=== PATIENT | male | born 1945 | race Caucasian/White ===

== ENCOUNTER → 2017-02-12 | Outpatient (CLI) | payer OTHER ==
[2016-10-01 09:35] VITALS: BP 159/86
--- NOTE | 2017-02-12 10:44 | RAD ---
Right shoulder, three views Indication: Shoulder pain after injury Findings: No cortical disruption or malalignment of the right shoulder identified. There are mild de generative changes of the acromioclavicular and glenohumeral joints. The visualized right velia thora x is unremarkable. Impression: No acute right shoulder fracture or subluxation identified. Mild degenerative disease. Reported By:
== END ==
LOC: RAD 10:07
PROVIDERS: ATTEND Specialist
DX: M25.511 Pain in right shoulder (principal)
CPT/HCPCS: 73030

== ENCOUNTER 2017-02-23 11:07 | Emergency (ER) | payer OTHER ==
[2017-02-23 11:12] VITALS: BP 122/93; BMI 32.8
--- NOTE | 2017-02-23 12:01 | DR.HYPOGLY ---
HPI - Time Seen Time seen: 11:50 - PCP Primary Care Physician: NICHOLAS - Complaint Chief Complaint Doctors Comments: I agree with statement. Patient admits to nausea and dizziness for three days. Denies fever, vomiting. Chief Complaint:: PT. C/O NAUSEA AND FEELING GROGGY. PT. STATES HIS BLOOD SUGAR HAS BEEN RUNNING HIGH. HIS NORMAL OTBS RUNS ABOUT 130MG/DL. TODAY, IT HAS BEEN IN THE 300'S. PT. SEEN DR. DAI THIS PAST WEDNESDAY AND WAS GIVEN A CORTISONE SHOT IN HIS RIGHT SHOULDER. - Source History Provided: Patient - Mode of Arrival Mode of Arrival: Ambulatory - Timing Onset of Chief Complaint: 02/23/17 PMH - PMH Past Medical History: Yes Past Medical History: Anxiety, Depression, Diabetes, Dyslipidemia, Hypertension Past Surgical History: Yes Surgical History: Ortho Surgery, Other - Family History History of Family Medical Conditions: Yes Family Medical History: Diabetes Mellitus, Coronary Artery Disease, Hypertension - Social History Does patient currently use any type of tobacco product: No Have you used tobacco products in the last 12 months: No Type of Tobacco Use: None Does any household member use tobacco: No Alcohol Use: None Do you use any recreational Drugs:: No Lives With: Spouse Lives Where: Home - infectious screening In the last 2 months have you had wt loss of >10#?: NO Have you had fever, night sweats or hemotysis?: No Have you traveled outside the country in the last 6 months?: No Isolation: Standard ROS - Review of Systems Eyes: No Symptoms Reported ENTM: No Symptoms Reported Respiratoy: No Symptoms Reported Cardiovascular: No Symptoms Reported Gastrointestinal/Abdominal: No Symptoms Reported Genitourinary: No Symptoms Reported Neurological: Dizziness Musculoskeletal: No Symptoms Reported Integumentary: No Symptoms Reported Hematologic/Lymphatic: No Symptoms Reported Endocrine: No Symptoms Reported Psychiatric: No Symptoms Reported All Other Systems: Reviewed and Negative PE - Vital Signs Vitals: Temperature 98.4 F Pulse Rate 93 Respiratory Rate 17 Blood Pressure [Left Arm] 122/71 Blood Pressure [Right Arm] 132/77 Blood Pressure 122/93 O2 Sat by Pulse Oximetry 96 - General Limitations: No Limitations General Appearance: Alert, In No Apparent Distress - Eyes Eye exam: Normal Appearance, PERRL, EOMI Pupils: Regular, Round: Bilateral Sclera/Conjunctival: Normal Inspection: Bilateral - ENT ENT Exam: Normal Exam Nose Exam: Normal Nose Exam Mouth Exam: Normal Inspection Throat Exam: Normal Inspection - Neck Neck Exam: Normal Inspection - Chest Chest Inspection: Normal Inspection - Respiratory Respiratory Exam: Normal Lung Sounds Bilat Respiratory Exam: Bilateral Clear to Auscultation - Cardiovascular Cardiovascular Exam: Regular Rate - Abdominal Exam Abdominal Exam: Normal Inspection Abdominal Tenderness: negative: RUQ, RLQ, LUQ, LLQ, Epigastrium, Suprapubic, Diffuse, Mild, Moderate, Severe, Other - Extremities Extremities Exam: negative: Normal Inspection, Full ROM, Tenderness, Normal Capillary Refill, Edema, Joint Swelling, Calf Tenderness, Other - Back Back Exam: Normal Inspection, Full ROM - Neurologic Neurological Exam: Alert, Oriented X3, CN II-XII Intact Cranial Nerve Exam: EOM Function (II, III, IV, ): Normal Course - Treatment Treatment: NS one liter, glucse decreased to 245mg/dl-- - Reevaluation 1st: Improved ROR - Labs Reviewed Result Diagrams: 02/23/17 12:20 02/23/17 12:20 Laboratory: WBC 11.9 X10^3/uL (3.6-10.0) H 02/23/17 12:20 RBC 5.53 X10^6/uL (4.7-6.0) 02/23/17 12:20 Hgb 14.2 g/dL (13.5-18.0) 02/23/17 12:20 Hct 42.2 % (42.0-54.0) 02/23/17 12:20 MCV 76.4 fL (80.0-100.0) L 02/23/17 12:20 MCH 25.8 pg (27.0-34.0) L 02/23/17 12:20 MCHC 33.7 g/dL (33.0-35.0) 02/23/17 12:20 RDW 14.6 % (11.6-16.5) 02/23/17 12:20 Plt Count 317 X10^3/uL (150.0-450.0) 02/23/17 12:20 Plt Count Comment Adequate (ADEQUATE) 02/23/17 12:20 MPV 7.4 fL (7.4-11.0) 02/23/17 12:20 Neut % 58.7 % (42.0-75.0) 02/23/17 12:20 Lymph % 31.7 % (21.0-51.0) 02/23/17 12:20 [place] % 6.6 % (0.0-13.0) 02/23/17 12:20 Eos % 1.6 % (0.9-2.9) 02/23/17 12:20 Baso % 1.4 % (0.2-1.0) H 02/23/17 12:20 Neut # 7.0 x10^3/uL (2.2-4.8) H 02/23/17 12:20 Lymph # 3.8 X10^3/uL (1.3-2.9) H 02/23/17 12:20 [place] # 0.8 x10^3/uL (0.3-0.8) 02/23/17 12:20 Eos # 0.2 x10^3/uL (0.0-0.2) 02/23/17 12:20 Baso # 0.2 X10^3/uL (0.0-0.1) H 02/23/17 12:20 Absolute Nucleated RBC 0.0 /100WBC 02/23/17 12:20 Plt Morphology Comment Normal (NORMAL) 02/23/17 12:20 RBC Morphology Abnormal (NORMAL) 02/23/17 12:20 Hypochromasia Slight A 02/23/17 12:20 Sodium 136 mmol/L (136-145) 02/23/17 12:20 Corrected Sodium 141 mmol/L (136-145) 02/23/17 12:20 Potassium 4.4 mmol/L (3.5-5.1) 02/23/17 12:20 Chloride 100 mmol/L (98-107) 02/23/17 12:20 Carbon Dioxide 26.2 mmol/L (21-32) 02/23/17 12:20 BUN 25 mg/dL (7-18) H 02/23/17 12:20 Creatinine 2.05 mg/dL (0.70-1.30) H 02/23/17 12:20 Est GFR (MDRD) Af Amer 41 (>60) L 02/23/17 12:20 Est GFR (MDRD) Non-Af 34 (>60) L 02/23/17 12:20 Glucose 314 mg/dL (65-99) H 02/23/17 12:20 Calcium 9.2 mg/dL (8.5-10.1) 02/23/17 12:20 Corrected Calcium TNP 02/23/17 12:20 Total Bilirubin 0.40 mg/dL (0.2-1.0) 02/23/17 12:20 AST 21 Units/L (15-37) 02/23/17 12:20 ALT 39 Units/L (12-78) 02/23/17 12:20 Alkaline Phosphatase 67 Units/L (46-116) 02/23/17 12:20 C-Reactive Protein < 0.50 mg/L (0-3.0) 02/23/17 12:20 Total Protein 7.6 g/dL (6.4-8.2) 02/23/17 12:20 Albumin 4.0 g/dL (3.4-5.0) 02/23/17 12:20 Globulin 3.6 g/dL (2.5-4.5) 02/23/17 12:20 Albumin/Globulin Ratio 1.1 Ratio (1.1-2.1) 02/23/17 12:20 Specimen Type Clean catch urine 02/23/17 12:19 Urine Color Yellow (YELLOW) 02/23/17 12:19 Urine Appearance Clear (CLEAR) 02/23/17 12:19 Urine pH 6.0 (5.0 - 8.0) 02/23/17 12:19 Ur Specific [place] 1.015 (1.000-1.030) 02/23/17 12:19 Urine Protein 2+ (NEGATIVE) 02/23/17 12:19 Urine Glucose (UA) 4+ (NEGATIVE) 02/23/17 12:19 Urine Ketones Negative (NEGATIVE) 02/23/17 12:19 Urine Occult Blood 1+ (NEGATIVE) 02/23/17 12:19 Urine Nitrite Negative (NEGATIVE) 02/23/17 12:19 Urine Bilirubin Negative (NEGATIVE) 02/23/17 12:19 Urine Urobilinogen Normal (NORMAL) 02/23/17 12:19 Ur Leukocyte Esterase Negative (NEGATIVE) 02/23/17 12:19 Urine RBC 0-3 /HPF (NEGATIVE) 02/23/17 12:19 Urine WBC None seen /HPF (NEGATIVE) 02/23/17 12:19 Ur Squamous Epith Cells Rare /HPF (NEGATIVE) 02/23/17 12:19 Urine Bacteria Negative /HPF (NEGATIVE) 02/23/17 12:19 Ur Culture Indicated? No/not indicated 02/23/17 12:19 - Diagnosis Discharge Problem: Dehydration, mild, Hyperglycemia - Discharge Plan Condition: Stable - Follow ups/Referrals Follow ups/Referrals: ANABELLA PETERSON [Primary Care Provider] - 3 days - Instructions
[2017-02-23] MEDS ORDERED: ZOFRAN INJ 4 MG VIAL IVP ONE (12:02)
[2017-02-23] MEDS ORDERED: NS 1000 ML 1,000 ML IV ONE (12:02)
[2017-02-23] MEDS ORDERED: NS 1000 ML 1,000 ML ONE (12:06)
[2017-02-23] MEDS ORDERED: ZOFRAN INJ 4 MG VIAL ONE (12:21)
[2017-02-23 12:26] LABS: BASOPHILS # (AUTO) 0.2 X10^3/uL (0.0-0.1); BASOPHILS % (AUTO) 1.4 % (0.2-1.0); EOSINOPHILS # (AUTO) 0.2 x10^3/uL (0.0-0.2); EOSINOPHILS % (AUTO) 1.6 % (0.9-2.9); HEMATOCRIT 42.2 % (42.0-54.0); HEMOGLOBIN 14.2 g/dL (13.5-18.0); LYMPHOCYTES # (AUTO) 3.8 X10^3/uL (1.3-2.9); LYMPHOCYTES % (AUTO) 31.7 % (21.0-51.0); MEAN CORPUSCULAR HEMOGLOBIN 25.8 pg (27.0-34.0); MEAN CORPUSCULAR HGB CONC 33.7 g/dL (33.0-35.0); MEAN CORPUSCULAR VOLUME 76.4 fL (80.0-100.0); MEAN PLATELET VOLUME 7.4 fL (7.4-11.0); MONOCYTES # (AUTO) 0.8 x10^3/uL (0.3-0.8); MONOCYTES % (AUTO) 6.6 % (0.0-13.0); NEUTROPHILS % (AUTO) 58.7 % (42.0-75.0); PLATELET COUNT 317 X10^3/uL (150.0-450.0); RED BLOOD COUNT 5.53 X10^6/uL (4.7-6.0); RED CELL DISTRIBUTION WIDTH 14.6 % (11.6-16.5); WHITE BLOOD COUNT 11.9 X10^3/uL (3.6-10.0)
[2017-02-23 12:27] LABS: BILIRUBIN,URINE NEGATIVE (NEGATIVE); BLOOD/HEMOGLOBIN,URINE 1+ (NEGATIVE); GLUCOSE, URINE 4+ (NEGATIVE); KETONES,URINE NEGATIVE (NEGATIVE); LEUKOCYTE ESTERASE ,URINE NEGATIVE (NEGATIVE); NITRITES,URINE NEGATIVE (NEGATIVE); PROTEIN,URINE 2+ (NEGATIVE); UROBILINOGEN,URINE NORMAL (NORMAL)
[2017-02-23 12:36] LABS: APPEARANCE,URINE CLEAR (CLEAR); BACTERIA,URINE NEGATIVE /HPF (NEGATIVE); COLOR,URINE YELLOW (YELLOW); RBC,URINE 0-3 /HPF (NEGATIVE); SQUAMOUS EPITHELIAL CELL,UR RARE /HPF (NEGATIVE)
[2017-02-23 12:39] LABS: ALANINE AMINOTRANSFERASE 39 Units/L (12-78); ALKALINE PHOSPHATASE 67 Units/L (46-116); ASPARTATE AMINO TRANSFERASE 21 Units/L (15-37); BLOOD UREA NITROGEN 25 mg/dL (7-18); C-REACTIVE PROTEIN < 0.50 mg/L (0-3.0); CALCIUM 9.2 mg/dL (8.5-10.1); CARBON DIOXIDE 26.2 mmol/L (21-32); CHLORIDE 100 mmol/L (98-107); COR NA(FOR HYPERGLY) 141 mmol/L (136-145); CREATININE 2.05 mg/dL (0.70-1.30); GLUCOSE 314 mg/dL (65-99); SODIUM 136 mmol/L (136-145); TOTAL PROTEIN 7.6 g/dL (6.4-8.2); eGFR BLACK RACES 41 (>60); eGFR NON BLACK RACES 34 (>60)
[2017-02-23 12:43] LABS: HYPOCHROMASIA SLIGHT; PLATELET MORPHOLOGY COMMENT NORMAL (NORMAL)
[2017-02-23 12:56] LABS: HEMOGLOBIN A1C 11.1 % (4.5-6.2)
== END 2017-02-23 13:41 | disposition home or self-care (01) ==
LOC: ER 11:35
DX: E86.0 Dehydration (principal); R73.9 Hyperglycemia, unspecified
CPT/HCPCS: 36415; 80053; 81001; 83036; 85025; 86140; 96365; 96374; 99283; A4222; J2405

== ENCOUNTER → 2017-04-29 | Outpatient (CLI) | payer OTHER ==
--- NOTE | 2017-04-29 17:03 | RAD ---
History: Right shoulder pain Study: Right shoulder three views Findings: Three views of the right shoulder compared to a study of February 12, 2017. There is narrowing and moderate spurring affecting the AC joint with spurring from the inferior aspect of the a chromium demonstrated as before. There is normal alignment at the glenohumeral joint. No fracture or bony erica tructive process is seen. 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 Reported By:
--- NOTE | 2017-04-29 17:05 | RAD ---
History: Right shoulder pain and neck pain Study: Cervical spine complete Findings: Multiple views of the cervical spine demonstrate straightening of the normal cervical lordo sis. There is severe disk space narrowing at the C5-6 level. There is moderate to marked endplate spu rring at essentially all levels. There are degenerative changes of the apophyseal joints with signifi cant bony foraminal narrowing on the left at the C3-4 level and to a limited degree at the C5-6 level s bilaterally. No fracture bony destructive process is seen. Impression: Advanced spondylosis of the cervical spine with mild to moderate osteoarthrosis with fora mando narrowing as described. Reported By:
== END | disposition home or self-care (01) | DRG 556 ==
LOC: RAD 09:12
PROVIDERS: ATTEND Specialist
DX: M25.511 Pain in right shoulder (principal); M47.892 Other spondylosis, cervical region; M19.011 Primary osteoarthritis, right shoulder
CPT/HCPCS: 72050; 73030

== ENCOUNTER → 2017-05-14 | Outpatient (CLI) | payer OTHER ==
--- NOTE | 2017-05-17 17:19 | MRI ---
MRI right shoulder without contrast Indication: Right shoulder pain after fall Comparison: Radiographs 04/29/2017 Technique: Multiplanar, multi sequence MR images of the right shoulder were obtained without contrast . Findings: There is moderate AC joint DJD with mild effacement of the underlying supraspinatus at the musculoten dinous junction related to degenerative hypertrophy and an inferiorly projecting osteophyte at the di stal clavicle. Type 2 acromion. There is trace fluid within the subacromial/subdeltoid bursa. There is intermediate signal of the distal supraspinatus and infraspinatus tendons, consistent with t endinosis, with bursal sided fraying of the supraspinatus. There is also partial undersurface tear of the superior subscapularis tendon. No definite full-thickness cuff tear or tendon retraction identif ied. There is intermediate signal and thickening of the intra-articular biceps tendon, which is other molina grossly intact. The long head biceps tendon is normally positioned within the bicipital groove, although there is increased peritendinous fluid noted. There is degenerative fraying of the superior labrum. The remainder of the labrum is otherwise grossly intact. Mild diffuse glenohumeral chondrosis noted, without full-thickness chondral defect. No joint effusion. Impression: 1. Supraspinatus and infraspinatus tendinosis with bursal sided fraying of the supraspinatus tendon. Partial undersurface tear of the superior subscapularis. No evidence for full-thickness cuff tear or tendon retraction. 2. Moderate tendinosis versus partial intrasubstance tear of the intra-articular biceps tendon. Findi ngs of biceps tenosynovitis. 3. Moderate AC joint DJD. Subacromial/subdeltoid bursitis. 4. No acute fracture or dislocation. Reported By:
== END | disposition home or self-care (01) ==
LOC: RAD 12:55
PROVIDERS: ATTEND Specialist
DX: M19.011 Primary osteoarthritis, right shoulder (principal); S46.819A Strain of other muscles, fascia and tendons at shoulder and upper arm level, unspecified arm, initial encounter; X58.XXXA Exposure to other specified factors, initial encounter; M75.51 Bursitis of right shoulder; M77.8 Other enthesopathies, not elsewhere classified
CPT/HCPCS: 73221

== ENCOUNTER 2017-05-28 07:24 | Emergency (ER) | payer OTHER ==
[2017-05-28 07:35] VITALS: BP 135/90; BMI 32.8
--- NOTE | 2017-05-28 07:47 | DR.N/VMALE ---
HPI - Primary Care Physician Primary Care Physician: LANCE KULKARNI - Complaints Chief Complaint:: PT C/O BEING NAUSEATED EVERYDAY FOR THE PAST 3 WEEK AND DIZZY AND THAT HE NEEDS SOME HELP.. PT C/O HX DM, SHINGLES, PANCREATITIS,, Self Treatment fo Chief Complaint: ZOFRAN ODT - Source History Provided: Patient - Mode of Arrival Mode of Arrival: Ambulatory - Timing Onset of Chief Complaint: 05/06/17 <PRATIMA SIU - Last Filed: 05/28/17 07:47> - Time Seen Time seen: 07:50 <GABBY HOWELL - Last Filed: 05/28/17 10:08> PMH - PMH Past Medical History: Yes Past Medical History: Diabetes Past Medical History Comment: PANCREATITIS, Past Surgical History: Yes Surgical History: Ortho Surgery, Other Past Surgical History Comment: HERNIA REPAIR, - Family History History of Family Medical Conditions: Yes Family Medical History: Diabetes Mellitus, Coronary Artery Disease, Hypertension - Social History Does patient currently use any type of tobacco product: No Have you used tobacco products in the last 12 months: No Type of Tobacco Use: None Does any household member use tobacco: No Alcohol Use: None Do you use any recreational Drugs:: No Lives With: Family Lives Where: Home - infectious screening In the last 2 months have you had wt loss of >10#?: NO Have you had fever, night sweats or hemotysis?: No Have you traveled outside the country in the last 6 months?: No Isolation: Standard <PRATIMA SIU - Last Filed: 05/28/17 07:47> - Vital Signs Vitals: Temperature 98.2 F Pulse Rate 91 Respiratory Rate 20 Blood Pressure [Left Arm] 122/71 Blood Pressure [Right Arm] 132/77 Blood Pressure 135/90 O2 Sat by Pulse Oximetry 96 ROR - Labs Reviewed Result Diagrams: 05/28/17 08:15 05/28/17 08:15 <GABBY HOWELL - Last Filed: 05/28/17 10:08> - Labs Reviewed Laboratory: WBC 7.9 X10^3/uL (3.6-10.0) 05/28/17 08:15 RBC 4.94 X10^6/uL (4.7-6.0) 05/28/17 08:15 Hgb 12.3 g/dL (13.5-18.0) L 05/28/17 08:15 Hct 37.6 % (42.0-54.0) L 05/28/17 08:15 MCV 76.1 fL (80.0-100.0) L 05/28/17 08:15 MCH 24.8 pg (27.0-34.0) L 05/28/17 08:15 MCHC 32.6 g/dL (33.0-35.0) L 05/28/17 08:15 RDW 15.5 % (11.6-16.5) 05/28/17 08:15 Plt Count 283 X10^3/uL (150.0-450.0) 05/28/17 08:15 Plt Count Comment Adequate (ADEQUATE) 05/28/17 08:15 MPV 7.6 fL (7.4-11.0) 05/28/17 08:15 Neut % 62.3 % (42.0-75.0) 05/28/17 08:15 Lymph % 24.8 % (21.0-51.0) 05/28/17 08:15 [place] % 8.5 % (0.0-13.0) 05/28/17 08:15 Eos % 3.3 % (0.9-2.9) H 05/28/17 08:15 Baso % 1.1 % (0.2-1.0) H 05/28/17 08:15 Neut # 4.9 x10^3/uL (2.2-4.8) H 05/28/17 08:15 Lymph # 2.0 X10^3/uL (1.3-2.9) 05/28/17 08:15 [place] # 0.7 x10^3/uL (0.3-0.8) 05/28/17 08:15 Eos # 0.3 x10^3/uL (0.0-0.2) H 05/28/17 08:15 Baso # 0.1 X10^3/uL (0.0-0.1) 05/28/17 08:15 Absolute Nucleated RBC 0.1 /100WBC 05/28/17 08:15 Plt Morphology Comment Normal (NORMAL) 05/28/17 08:15 RBC Morphology Normal (NORMAL) 05/28/17 08:15 Sodium 134 mmol/L (136-145) L 05/28/17 08:15 Corrected Sodium 139 mmol/L (136-145) 05/28/17 08:15 Potassium 4.3 mmol/L (3.5-5.1) 05/28/17 08:15 Chloride 101 mmol/L (98-107) 05/28/17 08:15 Carbon Dioxide 24.7 mmol/L (21-32) 05/28/17 08:15 BUN 17 mg/dL (7-18) 05/28/17 08:15 Creatinine 2.44 mg/dL (0.70-1.30) H 05/28/17 08:15 Est GFR (MDRD) Af Amer 34 (>60) L 05/28/17 08:15 Est GFR (MDRD) Non-Af 28 (>60) L 05/28/17 08:15 Glucose 317 mg/dL (65-99) H 05/28/17 08:15 Calcium 9.0 mg/dL (8.5-10.1) 05/28/17 08:15 Corrected Calcium TNP 05/28/17 08:15 Total Bilirubin 0.40 mg/dL (0.2-1.0) 05/28/17 08:15 AST 29 Units/L (15-37) 05/28/17 08:15 ALT 26 Units/L (12-78) 05/28/17 08:15 Alkaline Phosphatase 75 Units/L (46-116) 05/28/17 08:15 Total Protein 7.2 g/dL (6.4-8.2) 05/28/17 08:15 Albumin 3.7 g/dL (3.4-5.0) 05/28/17 08:15 Globulin 3.5 g/dL (2.5-4.5) 05/28/17 08:15 Albumin/Globulin Ratio 1.1 Ratio (1.1-2.1) 05/28/17 08:15 Amylase 42 Units/L (25-115) 05/28/17 08:15 Lipase 219 Units/L (73-393) 05/28/17 08:15 Specimen Type Clean catch urine 05/28/17 09:24 Urine Color Yellow (YELLOW) 05/28/17 09:24 Urine Appearance Slightly hazy (CLEAR) 05/28/17 09:24 Urine pH 6.0 (5.0 - 8.0) 05/28/17 09:24 Ur Specific [place] 1.015 (1.000-1.030) 05/28/17 09:24 Urine Protein 1+ (NEGATIVE) 05/28/17 09:24 Urine Glucose (UA) 4+ (NEGATIVE) 05/28/17 09:24 Urine Ketones Negative (NEGATIVE) 05/28/17 09:24 Urine Occult Blood Negative (NEGATIVE) 05/28/17 09:24 Urine Nitrite Negative (NEGATIVE) 05/28/17 09:24 Urine Bilirubin Negative (NEGATIVE) 05/28/17 09:24 Urine Urobilinogen Normal (NORMAL) 05/28/17 09:24 Ur Leukocyte Esterase Negative (NEGATIVE) 05/28/17 09:24 Urine RBC None seen /HPF (NEGATIVE) 05/28/17 09:24 Urine WBC 0-1 /HPF (NEGATIVE) 05/28/17 09:24 Ur Squamous Epith Cells Rare /HPF (NEGATIVE) 05/28/17 09:24 Urine Bacteria Negative /HPF (NEGATIVE) 05/28/17 09:24 Urine Mucus Rare /HPF (NEGATIVE) 05/28/17 09:24 Ur Culture Indicated? No/not indicated 05/28/17 09:24 <PRATIMA SIU - Last Filed: 05/28/17 07:47> <GABBY HOWELL - Last Filed: 05/28/17 10:08> - Diagnosis Discharge Problem: Nausea, Constipation - Discharge Plan Disposition: 01 HOME, SELF-CARE Condition: Stable - Follow ups/Referrals Follow ups/Referrals: FELICIANO KULKARNI [Primary Care Provider] - 3 days - Instructions Instructions: Nausea, Adult
[2017-05-28] MEDS ORDERED: NS 1000 ML 1,000 ML IV SCH (08:00)
[2017-05-28] MEDS ORDERED: ZOFRAN INJ 4 MG VIAL IVP ONE ×2 (08:09→08:14)
[2017-05-28] MEDS ORDERED: ZOFRAN INJ 4 MG VIAL ONE (08:12)
[2017-05-28] MEDS ORDERED: NS 1000 ML 1,000 ML ONE (08:12)
[2017-05-28 08:19] LABS: BASOPHILS # (AUTO) 0.1 X10^3/uL (0.0-0.1); BASOPHILS % (AUTO) 1.1 % (0.2-1.0); EOSINOPHILS # (AUTO) 0.3 x10^3/uL (0.0-0.2); EOSINOPHILS % (AUTO) 3.3 % (0.9-2.9); HEMATOCRIT 37.6 % (42.0-54.0); HEMOGLOBIN 12.3 g/dL (13.5-18.0); LYMPHOCYTES % (AUTO) 24.8 % (21.0-51.0); MEAN CORPUSCULAR HEMOGLOBIN 24.8 pg (27.0-34.0); MEAN CORPUSCULAR HGB CONC 32.6 g/dL (33.0-35.0); MEAN CORPUSCULAR VOLUME 76.1 fL (80.0-100.0); MEAN PLATELET VOLUME 7.6 fL (7.4-11.0); MONOCYTES # (AUTO) 0.7 x10^3/uL (0.3-0.8); MONOCYTES % (AUTO) 8.5 % (0.0-13.0); NEUTROPHILS # (AUTO) 4.9 x10^3/uL (2.2-4.8); NEUTROPHILS % (AUTO) 62.3 % (42.0-75.0); PLATELET COUNT 283 X10^3/uL (150.0-450.0); RED BLOOD COUNT 4.94 X10^6/uL (4.7-6.0); RED CELL DISTRIBUTION WIDTH 15.5 % (11.6-16.5); WHITE BLOOD COUNT 7.9 X10^3/uL (3.6-10.0)
[2017-05-28 08:29] LABS: PLATELET MORPHOLOGY COMMENT NORMAL (NORMAL)
[2017-05-28 08:30] LABS: ALANINE AMINOTRANSFERASE 26 Units/L (12-78); ALBUMIN 3.7 g/dL (3.4-5.0); ALKALINE PHOSPHATASE 75 Units/L (46-116); AMYLASE 42 Units/L (25-115); ASPARTATE AMINO TRANSFERASE 29 Units/L (15-37); BLOOD UREA NITROGEN 17 mg/dL (7-18); CARBON DIOXIDE 24.7 mmol/L (21-32); CHLORIDE 101 mmol/L (98-107); COR NA(FOR HYPERGLY) 139 mmol/L (136-145); CREATININE 2.44 mg/dL (0.70-1.30); LIPASE 219 Units/L (73-393); SODIUM 134 mmol/L (136-145); TOTAL PROTEIN 7.2 g/dL (6.4-8.2); eGFR BLACK RACES 34 (>60); eGFR NON BLACK RACES 28 (>60)
--- NOTE | 2017-05-28 08:34 | DR.N/VMALE ---
HPI - Time Seen Time seen: 07:45 - Primary Care Physician Primary Care Physician: LANCE KULKARNI - HPI Comment HPI Comment: Nausea - Complaints Chief Complaint:: PT C/O BEING NAUSEATED EVERYDAY FOR THE PAST 3 WEEK AND DIZZY AND THAT HE NEEDS SOME HELP.. PT C/O HX DM, SHINGLES, PANCREATITIS,, Self Treatment fo Chief Complaint: ZOFRAN ODT - Reviewed Nurses Notes Reviewed: Yes - Source History Provided: Patient - Mode of Arrival Mode of Arrival: Ambulatory - Timing Onset of Chief Complaint: 05/06/17 - Context Recent: None Possible Ingestion: denies: Unknown, ETOH, Ethylene Glycol, Isopropanol, Methanol History of: Diabetes - Associated Signs and Symptoms Abdominal Pain Quality: denies: Aching, Burning, Cramping, Sharp, Stabbing, Other PMH - PMH Past Medical History: Yes Past Medical History: Diabetes, Hypertension Past Medical History Comment: PANCREATITIS, Past Surgical History: Yes Surgical History: Ortho Surgery, Other Past Surgical History Comment: Umbilical HERNIA REPAIR - Family History History of Family Medical Conditions: Yes Family Medical History: Diabetes Mellitus, Coronary Artery Disease, Hypertension - Social History Does patient currently use any type of tobacco product: No Have you used tobacco products in the last 12 months: No Type of Tobacco Use: None Does any household member use tobacco: No Alcohol Use: None Do you use any recreational Drugs:: No Lives With: Family Lives Where: Home - infectious screening In the last 2 months have you had wt loss of >10#?: NO Have you had fever, night sweats or hemotysis?: No Have you traveled outside the country in the last 6 months?: No Isolation: Standard ROS - Review of Systems Gastrointestinal/Abdominal: Nausea Genitourinary: No Symptoms Reported Neurological: No Symptoms Reported Musculoskeletal: No Symptoms Reported Integumentary: No Symptoms Reported Hematologic/Lymphatic: No Symptoms Reported Endocrine: No Symptoms Reported Psychiatric: No Symptoms Reported All Other Systems: Reviewed and Negative PE - Vital Signs Vitals: Temperature 98.2 F Pulse Rate 91 Respiratory Rate 20 Blood Pressure [Left Arm] 122/71 Blood Pressure [Right Arm] 132/77 Blood Pressure 135/90 O2 Sat by Pulse Oximetry 96 - General Limitations: No Limitations General Appearance: Alert, In No Apparent Distress - Head Head Exam: Normal Inspection - Eyes Eye exam: Normal Appearance, PERRL, EOMI - ENT ENT Exam: Normal Exam, Normal Oropharynx, Normal External Ear Exam, Mucous Membranes Moist - Neck Neck Exam: Normal Inspection, Full ROM, Trachea Midline - Chest Chest Inspection: Normal Inspection, Symmetric Chest Wall Rise - Respiratory Respiratory Exam: Normal Lung Sounds Bilat Respiratory Exam: Bilateral Clear to Auscultation - Cardiovascular Cardiovascular Exam: Regular Rate, Normal Rhythm - Abdominal Exam Abdominal Exam: Normal Inspection, Normal Bowel Sounds, Soft - Rectal Rectal Exam: Deferred - Exam: Male: Deferred - Extremities Extremities Exam: Normal Inspection, Full ROM - Back Back Exam: Normal Inspection, Full ROM - Neurologic Neurological Exam: Alert, Oriented X3, CN II-XII Intact - Psychiatric Psychiatric Exam: Normal Affect, Normal Mood MDM - Differential Diagnosis Differential Diagnosis: Considerations may Include:: Diabetes/DKA, Pancreatitis Course - Reevaluation 1st: Improved 2nd: Resolved 3rd: Resolved - Education/Counseling Education/Counseling: Patient, Education, Counseling Educated On: Treatment, Diagnosis ROR - Labs Reviewed Result Diagrams: 05/28/17 08:15 05/28/17 08:15 Laboratory: WBC 7.9 X10^3/uL (3.6-10.0) 05/28/17 08:15 RBC 4.94 X10^6/uL (4.7-6.0) 05/28/17 08:15 Hgb 12.3 g/dL (13.5-18.0) L 05/28/17 08:15 Hct 37.6 % (42.0-54.0) L 05/28/17 08:15 MCV 76.1 fL (80.0-100.0) L 05/28/17 08:15 MCH 24.8 pg (27.0-34.0) L 05/28/17 08:15 MCHC 32.6 g/dL (33.0-35.0) L 05/28/17 08:15 RDW 15.5 % (11.6-16.5) 05/28/17 08:15 Plt Count 283 X10^3/uL (150.0-450.0) 05/28/17 08:15 Plt Count Comment Adequate (ADEQUATE) 05/28/17 08:15 MPV 7.6 fL (7.4-11.0) 05/28/17 08:15 Neut % 62.3 % (42.0-75.0) 05/28/17 08:15 Lymph % 24.8 % (21.0-51.0) 05/28/17 08:15 [place] % 8.5 % (0.0-13.0) 05/28/17 08:15 Eos % 3.3 % (0.9-2.9) H 05/28/17 08:15 Baso % 1.1 % (0.2-1.0) H 05/28/17 08:15 Neut # 4.9 x10^3/uL (2.2-4.8) H 05/28/17 08:15 Lymph # 2.0 X10^3/uL (1.3-2.9) 05/28/17 08:15 [place] # 0.7 x10^3/uL (0.3-0.8) 05/28/17 08:15 Eos # 0.3 x10^3/uL (0.0-0.2) H 05/28/17 08:15 Baso # 0.1 X10^3/uL (0.0-0.1) 05/28/17 08:15 Absolute Nucleated RBC 0.1 /100WBC 05/28/17 08:15 Plt Morphology Comment Normal (NORMAL) 05/28/17 08:15 RBC Morphology Normal (NORMAL) 05/28/17 08:15 Sodium 134 mmol/L (136-145) L 05/28/17 08:15 Corrected Sodium 139 mmol/L (136-145) 05/28/17 08:15 Potassium 4.3 mmol/L (3.5-5.1) 05/28/17 08:15 Chloride 101 mmol/L (98-107) 05/28/17 08:15 Carbon Dioxide 24.7 mmol/L (21-32) 05/28/17 08:15 BUN 17 mg/dL (7-18) 05/28/17 08:15 Creatinine 2.44 mg/dL (0.70-1.30) H 05/28/17 08:15 Est GFR (MDRD) Af Amer 34 (>60) L 05/28/17 08:15 Est GFR (MDRD) Non-Af 28 (>60) L 05/28/17 08:15 Glucose 317 mg/dL (65-99) H 05/28/17 08:15 Calcium 9.0 mg/dL (8.5-10.1) 05/28/17 08:15 Corrected Calcium TNP 05/28/17 08:15 Total Bilirubin 0.40 mg/dL (0.2-1.0) 05/28/17 08:15 AST 29 Units/L (15-37) 05/28/17 08:15 ALT 26 Units/L (12-78) 05/28/17 08:15 Alkaline Phosphatase 75 Units/L (46-116) 05/28/17 08:15 Total Protein 7.2 g/dL (6.4-8.2) 05/28/17 08:15 Albumin 3.7 g/dL (3.4-5.0) 05/28/17 08:15 Globulin 3.5 g/dL (2.5-4.5) 05/28/17 08:15 Albumin/Globulin Ratio 1.1 Ratio (1.1-2.1) 05/28/17 08:15 Amylase 42 Units/L (25-115) 05/28/17 08:15 Lipase 219 Units/L (73-393) 05/28/17 08:15 Specimen Type Clean catch urine 05/28/17 09:24 Urine Color Yellow (YELLOW) 05/28/17 09:24 Urine Appearance Slightly hazy (CLEAR) 05/28/17 09:24 Urine pH 6.0 (5.0 - 8.0) 05/28/17 09:24 Ur Specific [place] 1.015 (1.000-1.030) 05/28/17 09:24 Urine Protein 1+ (NEGATIVE) 05/28/17 09:24 Urine Glucose (UA) 4+ (NEGATIVE) 05/28/17 09:24 Urine Ketones Negative (NEGATIVE) 05/28/17 09:24 Urine Occult Blood Negative (NEGATIVE) 05/28/17 09:24 Urine Nitrite Negative (NEGATIVE) 05/28/17 09:24 Urine Bilirubin Negative (NEGATIVE) 05/28/17 09:24 Urine Urobilinogen Normal (NORMAL) 05/28/17 09:24 Ur Leukocyte Esterase Negative (NEGATIVE) 05/28/17 09:24 Urine RBC None seen /HPF (NEGATIVE) 05/28/17 09:24 Urine WBC 0-1 /HPF (NEGATIVE) 05/28/17 09:24 Ur Squamous Epith Cells Rare /HPF (NEGATIVE) 05/28/17 09:24 Urine Bacteria Negative /HPF (NEGATIVE) 05/28/17 09:24 Urine Mucus Rare /HPF (NEGATIVE) 05/28/17 09:24 Ur Culture Indicated? No/not indicated 05/28/17 09:24 - XRAY XRAY Interpreted by: Self XRAY Findings: normal chest. stool in colon. contrast also present - Diagnosis Discharge Problem: Nausea, Constipation - Discharge Plan Disposition: 01 HOME, SELF-CARE Condition: Stable - Follow ups/Referrals Follow ups/Referrals: FELICIANO KULKARNI [Primary Care Provider] - 3 days - Instructions Instructions: Nausea, Adult
[2017-05-28] MEDS ORDERED: REGLAN INJ 10 MG VIAL IVP ONE (09:00)
[2017-05-28] MEDS ORDERED: REGLAN INJ 10 MG VIAL ONE (09:05)
--- NOTE | 2017-05-28 09:27 | RAD ---
HISTORY: Nausea every day for the past 3 weeks. History of diabetes, shingles and pancreatitis. Study: Acute abdominal series Comparison: CT abdomen and pelvis done 05/25/2017. Findings: The trachea is midline. The cardiac silhouette is enlarged with aortic uncoiling.. The lungs are cl ear without focal infiltrate or effusion. The bony thorax is unremarkable. Flat plate and upright evaluation of the abdomen demonstrates a small amount of residual oral contras t present within the right colon from the prior CT study. No bowel obstruction or perforation is seen .. No pathological soft tissue mass or calcification can be observed. The bony structures are gross ly intact. IMPRESSION: 1. No acute cardiopulmonary disease. There is a hypertensive configuration present. 2. No evidence for acute abdominal pathology identified. Reported By:
[2017-05-28 09:35] LABS: BILIRUBIN,URINE NEGATIVE (NEGATIVE); BLOOD/HEMOGLOBIN,URINE NEGATIVE (NEGATIVE); GLUCOSE, URINE 4+ (NEGATIVE); KETONES,URINE NEGATIVE (NEGATIVE); LEUKOCYTE ESTERASE ,URINE NEGATIVE (NEGATIVE); NITRITES,URINE NEGATIVE (NEGATIVE); PROTEIN,URINE 1+ (NEGATIVE); UROBILINOGEN,URINE NORMAL (NORMAL)
[2017-05-28 09:50] LABS: APPEARANCE,URINE SLIGHTLY HAZY (CLEAR); COLOR,URINE YELLOW (YELLOW)
[2017-05-28 09:51] LABS: BACTERIA,URINE NEGATIVE /HPF (NEGATIVE); MUCUS,URINE RARE /HPF (NEGATIVE); RBC,URINE NONE SEEN /HPF (NEGATIVE); SQUAMOUS EPITHELIAL CELL,UR RARE /HPF (NEGATIVE)
== END 2017-05-28 10:25 | disposition home or self-care (01) ==
LOC: ER 07:24
DX: R11.0 Nausea (principal); K59.09 Other constipation
CPT/HCPCS: 36415; 74022; 80053; 81001; 82150; 83690; 85025; 96365; 96367; 96374; 96375; 99282; 99283; A4222; J2405; J2765

== ENCOUNTER 2020-09-03 04:29 | Observation (INO) ==
[2020-09-03 05:00] VITALS: BMI 32.1
[2020-09-03] MEDS ORDERED: NITROSTAT SL PRN ×2 (05:18→07:58)
[2020-09-03] MEDS ORDERED: NS 1000 ML 1,000 ML IV STA (05:18)
--- NOTE | 2020-09-03 05:24 | DR.CP ---
HPI Time Seen Time Seen by Provider: 09/03/20 05:13 PCP Primary Care Physician: luann HPI Comment HPI Comment: PATIENT WITH A HISTORY OF HYPERTENSION AND TYPE 2 DIABETES COMPLAINS OF INTERMITTENT SUBSTERNAL PRESSURE ONSET 8PM LAST NIGHT RADIATES TO LEFT SHOULDER AND BACK. PAIN SCALE INITIALLY 7/10 AND UP0N ARRIVAL PAIN IS 3/10. DENIES DYSPNEA, DIAPHORESIS AND PALPITATIONS. HAS A HISTORY OF CARDIAC CATHERIZATION 20 YEARS AGO X 2 PROCEDURES WITH STENT INSERTION IN [facility]. Complaint Chief Complaint Doctor Comments: INTERMITTENT CHEST PAIN SINCE 8PM LAST NIGHT Chief Complaint:: PT STATES" I'M HAVING CHEST AND BACK PAIN I'M UNDER ALOT OF STRESS IT MAY BE JUST MY ANXEITY BUT I NEED TO BE SURE" Self Treatment fo Chief Complaint: NONE COVID-19 Coronavirus risk:travel/contact w/high risk person: No Has patient experienced Coronavirus symptoms: No Reviewed Nurses Notes Review: Yes Source History Provided: Patient Mode of Arrival Mode of Arrival: Ambulatory Timing Onset of Chief Complaint: 09/03/20 Came on: Suddenly Pain: Present Now Duration Duration: Intermittent Duration: Hours Location Location of Chest Pain: Chest (SUBSTERNAL) Chest Pain Radiation Location: Left Shoulder and Back Context Onset: At rest History of: Similar pain in the past and Angina Prehospital Care: None Quality Quality: Heavy Severity Severity: Moderate Modifying Factors Worsens: Nothing Associated Signs and Symptoms Associated Signs and Symptoms: None PMH PMH Past Medical History: Yes Past Medical History: Anxiety, Diabetes, GERD and Hypertension Past Surgical History: Yes Surgical History: Ortho Surgery and Tonsillectomy Family History History of Family Medical Conditions: Yes Family Medical History: Diabetes Mellitus, Coronary Artery Disease and Hypertension Social History Does patient currently use any type of tobacco product: No Have you used tobacco products in the last 12 months: No Type of Tobacco Use: None Does any household member use tobacco: No Alcohol Use: None Do you use any recreational Drugs:: No Lives With: Family Lives Where: Home Travel Risk Coronavirus risk:travel/contact w/high risk person: No Has patient experienced Coronavirus symptoms: No Infectious screening In the last 2 months have you had wt loss of >10#?: NO Have you had fever, night sweats or hemotysis?: No Have you traveled outside the country in the last 6 months?: No Isolation: Standard ROS Review of Systems Constitutional: No Symptoms Reported Eyes: No Symptoms Reported ENTM: No Symptoms Reported Respiratoy: No Symptoms Reported Cardiovascular: See HPI and Chest Pain Gastrointestinal/Abdominal: No Symptoms Reported Genitourinary: No Symptoms Reported Neurological: No Symptoms Reported Musculoskeletal: No Symptoms Reported Integumentary: No Symptoms Reported Hematologic/Lymphatic: No Symptoms Reported Endocrine: No Symptoms Reported Psychiatric: No Symptoms Reported All Other Systems: Reviewed and Negative PE Vitals Vitals: Temperature 97.1 F Pulse Rate 82 Respiratory Rate 18 Blood Pressure [Left Arm] 122/71 Blood Pressure [Right Arm] 132/77 Blood Pressure 171/90 O2 Sat by Pulse Oximetry 99 General Limitations: No Limitations General Appearance: Alert and In No Apparent Distress Head Head Exam: Normal Inspection and Atraumatic Eyes Eye exam: Normal Appearance, PERRL and EOMI ENT ENT Exam: Normal Exam Chest Chest Inspection: Normal Inspection and Symmetric Chest Wall Rise Respiratory Respiratory Exam: Normal Lung Sounds Bilat Respiratory Exam: Bilateral: Clear to Auscultation Cardiovascular Cardiovascular Exam: Regular Rate, Normal Rhythm and Systolic Murmur Pulse: Normal Edema: Normal Abdominal Exam Abdominal Exam: Normal Inspection, Normal Bowel Sounds and Soft Extremities Extremities Exam: Normal Inspection and Edema (TRACE PRETIBIAL EDEMA) Back Back Exam: Normal Inspection Neurologic Neurological Exam: Alert and Oriented X3 Psychiatric Psychiatric Exam: Normal Affect and Normal Mood Skin Skin Exam: Warm, Dry, Intact and Normal Color MDM Differential Diagnosis Differential Diagnosis: Angina, Costochondritis, Myocardial Infarction and Pericarditis COURSE Treatment Treatment: ADMINISTERED ASPIRIN 324MG ORALLY, NITROGLYCERIN 0.4MG SL Reevaluation 1st: Resolved (completely resolved after ntg 0.4mg sl x1 dose) Consultation Call Returned: 07:10 Consultation Comments: [place] [address] CONCERNING PATIENT'S HISTORY, EKG AND LAB RESULTS Education/Counseling Education/Counseling: Patient and Counseling Educated On: Treatment and Diagnosis ROR Labs Reviewed Laboratory Results Reviewed?: Yes Result Diagrams: 09/03/20 05:40 09/03/20 05:40 Laboratory: WBC 8.2 X10^3/uL (3.6-10.0) 09/03/20 05:40 RBC 4.29 X10^6/uL (4.7-6.0) L 09/03/20 05:40 Hgb 9.6 g/dL (13.5-18.0) L 09/03/20 05:40 Hct 30.2 % (42.0-54.0) L 09/03/20 05:40 MCV 70.5 fL (80.0-100.0) L 09/03/20 05:40 MCH 22.3 pg (27.0-34.0) L 09/03/20 05:40 MCHC 31.7 g/dL (33.0-35.0) L 09/03/20 05:40 RDW 16.7 % (11.6-16.5) H 09/03/20 05:40 Plt Count 319 X10^3/uL (150.0-450.0) 09/03/20 05:40 Plt Count Comment Adequate (ADEQUATE) 09/03/20 05:40 MPV 7.6 fL (7.4-11.0) 09/03/20 05:40 Neut % (Auto) 41.6 % (42.0-75.0) L 09/03/20 05:40 Lymph % (Auto) 41.6 % (21.0-51.0) 09/03/20 05:40 [place] % (Auto) 8.5 % (0.0-13.0) 09/03/20 05:40 Eos % (Auto) 7.0 % (0.9-2.9) H 09/03/20 05:40 Baso % (Auto) 1.3 % (0.2-1.0) H 09/03/20 05:40 Neut # (Auto) 3.4 x10^3/uL (2.2-4.8) 09/03/20 05:40 Lymph # (Auto) 3.4 X10^3/uL (1.3-2.9) H 09/03/20 05:40 [place] # (Auto) 0.7 x10^3/uL (0.3-0.8) 09/03/20 05:40 Eos # (Auto) 0.6 x10^3/uL (0.0-0.2) H 09/03/20 05:40 Baso # (Auto) 0.1 X10^3/uL (0.0-0.1) 09/03/20 05:40 Absolute Nucleated RBC 0.0 /100WBC 09/03/20 05:40 Plt Morphology Comment Normal (NORMAL) 09/03/20 05:40 RBC Morphology Abnormal (NORMAL) 09/03/20 05:40 Microcytosis Slight A 09/03/20 05:40 Ovalocytes Present 09/03/20 05:40 PT 12.6 SECONDS (11.8-14.3) 09/03/20 05:40 INR Target Range - 09/03/20 05:40 INR 0.97 (0.8-1.3) 09/03/20 05:40 D-Dimer 0.99 ug/ml (0.0-0.57) H* 09/03/20 05:40 Sodium 140 mmol/L (136-145) 09/03/20 05:40 Corrected Sodium 142 mmol/L (136-145) 09/03/20 05:40 Potassium 4.3 mmol/L (3.5-5.1) 09/03/20 05:40 Chloride 105 mmol/L (98-107) 09/03/20 05:40 Carbon Dioxide 22.9 mmol/L (21-32) 09/03/20 05:40 BUN 21 mg/dL (7-18) H 09/03/20 05:40 Creatinine 2.12 mg/dL (0.70-1.30) H 09/03/20 05:40 Est GFR (MDRD) Af Amer 40 (>60) L 09/03/20 05:40 Est GFR (MDRD) Non-Af 33 (>60) L 09/03/20 05:40 Glucose 175 mg/dL (65-99) H 09/03/20 05:40 Calcium 9.1 mg/dL (8.5-10.1) 09/03/20 05:40 Corrected Calcium TNP 09/03/20 05:40 Total Bilirubin 0.20 mg/dL (0.2-1.0) 09/03/20 05:40 AST 10 Units/L (15-37) L 09/03/20 05:40 ALT 17 Units/L (12-78) 09/03/20 05:40 Alkaline Phosphatase 44 Units/L (46-116) L 09/03/20 05:40 Troponin I 0.16 ng/mL (0-1.5) 09/03/20 05:40 B-Natriuretic Peptide 18.3 pg/mL (0-79) 09/03/20 05:40 Total Protein 6.7 g/dL (6.4-8.2) 09/03/20 05:40 Albumin 3.7 g/dL (3.4-5.0) 09/03/20 05:40 Globulin 3.0 g/dL (2.5-4.5) 09/03/20 05:40 Albumin/Globulin Ratio 1.2 Ratio (1.1-2.1) 09/03/20 05:40 SARS CoV-2 RNA Rapid ANGELINA Negative (NEGATIVE) 09/03/20 07:08 Other Results Comments: PATIENT'S CHEST PAIN RESOLVED AFTER 1 DOSE OF NITROGLYCERIN 0. 4MG SL, ADMINISTERED LOVENOX 40MG SUBQ, APPLICATION NITROPASTE 1" ANTERIOR CHEST WALL XRAY XRAY Interpreted by: Radiologist X-ray Results: PORTABLE CHEST XRAY CONSISTENT WITH NO ACUTE PROCESS EKG Rate: 85 [place]: Normal and LAD Rhythm: NSR ST: Normal Opioid Opioid Risk Tool Age ([place] box if 16-45): No History of Preadolescent Sexual Abuse: No Total: 0 Total Score Risk Category: Low Risk Copyright: Albino REED predicting aberrant behaviors Diagnosis Discharge Problem: Acute chest pain
[2020-09-03] MEDS ORDERED: ASPIRIN 81 MG CHEWTAB ONE (05:39)
--- NOTE | 2020-09-03 05:42 | RAD ---
PROCEDURE: Chest X-ray 1 View .HISTORY: Left-sided chest pain.TECHNIQUE: AP view .COMPARISON: 05/28/2017.TECHNICAL QUALITY: Satisfactory .FINDINGS:Normal size heart .Mediastinum and hilar regions show no masses or lymphadenopathy .Normal central vascularity .No pulmonary consolidation, masses, pleural fluid, or pneumothorax .No acute bony abnormality .IMPRESSION:No active cardiopulmonary disease .Electronically signed by: Wilnre Damon (Sep 03, 2020 05:41:18)
[2020-09-03] MEDS ORDERED: NITROSTAT ONE (05:44)
[2020-09-03 05:55] LABS: BASOPHILS # (AUTO) 0.1 X10^3/uL (0.0-0.1); BASOPHILS % (AUTO) 1.3 % (0.2-1.0); EOSINOPHILS # (AUTO) 0.6 x10^3/uL (0.0-0.2); HEMATOCRIT 30.2 % (42.0-54.0); HEMOGLOBIN 9.6 g/dL (13.5-18.0); LYMPHOCYTES # (AUTO) 3.4 X10^3/uL (1.3-2.9); LYMPHOCYTES % (AUTO) 41.6 % (21.0-51.0); MEAN CORPUSCULAR HEMOGLOBIN 22.3 pg (27.0-34.0); MEAN CORPUSCULAR HGB CONC 31.7 g/dL (33.0-35.0); MEAN CORPUSCULAR VOLUME 70.5 fL (80.0-100.0); MEAN PLATELET VOLUME 7.6 fL (7.4-11.0); MONOCYTES # (AUTO) 0.7 x10^3/uL (0.3-0.8); MONOCYTES % (AUTO) 8.5 % (0.0-13.0); NEUTROPHILS # (AUTO) 3.4 x10^3/uL (2.2-4.8); NEUTROPHILS % (AUTO) 41.6 % (42.0-75.0); PLATELET COUNT 319 X10^3/uL (150.0-450.0); RED BLOOD COUNT 4.29 X10^6/uL (4.7-6.0); RED CELL DISTRIBUTION WIDTH 16.7 % (11.6-16.5); WHITE BLOOD COUNT 8.2 X10^3/uL (3.6-10.0)
[2020-09-03 06:04] LABS: ALANINE AMINOTRANSFERASE 17 Units/L (12-78); ALBUMIN 3.7 g/dL (3.4-5.0); ALKALINE PHOSPHATASE 44 Units/L (46-116); ASPARTATE AMINO TRANSFERASE 10 Units/L (15-37); BLOOD UREA NITROGEN 21 mg/dL (7-18); CALCIUM 9.1 mg/dL (8.5-10.1); CARBON DIOXIDE 22.9 mmol/L (21-32); CHLORIDE 105 mmol/L (98-107); COR NA(FOR HYPERGLY) 142 mmol/L (136-145); CREATININE 2.12 mg/dL (0.70-1.30); SODIUM 140 mmol/L (136-145); TOTAL PROTEIN 6.7 g/dL (6.4-8.2); TROPONIN I 0.16 ng/mL (0-1.5); eGFR NON BLACK RACES 33 (>60)
[2020-09-03 06:11] LABS: MICROCYTOSIS SLIGHT; OVALOCYTES PRESENT; PLATELET MORPHOLOGY COMMENT NORMAL (NORMAL)
[2020-09-03] MEDS ORDERED: NS 1000 ML 1,000 ML ONE (06:23)
[2020-09-03] MEDS ORDERED: NITRO-BID OINT 2% UD (E.R. USE ONLY) TD ONE (06:29)
[2020-09-03] MEDS ORDERED: NITRO-BID OINT 2% UD (E.R. USE ONLY) ONE (06:42)
[2020-09-03] MEDS ORDERED: LOPRESSOR TAB 25 MG PO ONE (07:10)
[2020-09-03] MEDS ORDERED: LOPRESSOR TAB 50 MG ONE (07:13)
[2020-09-03] MEDS ORDERED: ATIVAN TAB 1 MG PO PRN (07:58)
[2020-09-03] MEDS ORDERED: MORPHINE SULFATE INJ 2 MG INJ IVP PRN (07:58)
[2020-09-03] MEDS ORDERED: NS 1000 ML 1,000 ML IV SCH (08:00)
--- NOTE | 2020-09-03 08:50 | DR.H&P ---
H&P History & Physical for Day of: H&P Date: 09/03/20 Chief Complaint Chief Complaint: Chest pain Allergies Allergies Allergy/AdvReac Type Severity Reaction Status Date / Time No Known Drug Allergies Allergy Verified 05/28/17 07:44 History of Present Illness History of Present Illness: Pt is a 75 year old male past medical history Hypertension, Diabetes mellitus, Chronic kidney disease presenting after having chest pain that started last night around 8 PM. He reports having sub-sternum chest pain that was sharp, 7/10, and radiated to left shoulder. He denies feeling shortness of breath, diaphoresis, or palpitations. He reported pain occurred "on and off" throughout the night that gave him concern. He also states he has been under a lot of stress recently that may be contributing to symptoms. He received some relief of chest pain when he arrived to ER and was treated with medications morphine and nitroglycerin. Labs/imaging: Wbc 8.2, Hgb 9.6, Plt 319, Na 140, K 4.3, Cr 2.12, GFR 40, Glucose 175, D-dimer 0.99, COVID-19 negative, CXR no acute findings, EKG NSR, Troponin 0.039. Pt was placed on telemetry for observation and serial cardiac enzymes and ekg. Repeat cardiac enzymes showed increase in troponin level up to 1.[address] changes and T wave inversions not seen on previous. Pt was considered to be having an NSTEMI, he was immediately placed NPO and started on continuous heparin infusion. Discussed [place], [place] hospitalist transfer details, agrees and accepted transfer. Pt will be transferred to higher level of care facility for further evaluation. Time spent on clinical assessment, reviewing labs/imaging, decision making, documentation, and transfer greater than 75 minutes. Past Medical History Past Medical History: Anxiety, Diabetes, GERD and Hypertension Additional Medical History: Vision Deficit, Last Heart Cath >10years, Last Echo >5years Past Surgical History Surgical History: Ortho Surgery and Tonsillectomy Additional Surgical History: Hernia Repair, Tonsillectomy and Adenoidectomy, Right Calf Muscle Repair Family History Family Medical History: Diabetes Mellitus, Coronary Artery Disease and Hypertension Social History Does patient currently use any type of tobacco product: No Have you used tobacco products in the last 12 months: No Type of Tobacco Use: None Does any household member use tobacco: No Alcohol Use: None Medications Home Medications: No Known Drug Allergies Allergy (Verified 05/28/17 07:44) Labs Result Diagrams: 09/03/20 05:40 09/03/20 05:40 Labs: Laboratory WBC 8.2 X10^3/uL (3.6-10.0) 09/03/20 05:40 RBC 4.29 X10^6/uL (4.7-6.0) L 09/03/20 05:40 Hgb 9.6 g/dL (13.5-18.0) L 09/03/20 05:40 Hct 30.2 % (42.0-54.0) L 09/03/20 05:40 MCV 70.5 fL (80.0-100.0) L 09/03/20 05:40 MCH 22.3 pg (27.0-34.0) L 09/03/20 05:40 MCHC 31.7 g/dL (33.0-35.0) L 09/03/20 05:40 RDW 16.7 % (11.6-16.5) H 09/03/20 05:40 Plt Count 319 X10^3/uL (150.0-450.0) 09/03/20 05:40 Plt Count Comment Adequate (ADEQUATE) 09/03/20 05:40 MPV 7.6 fL (7.4-11.0) 09/03/20 05:40 Neut % (Auto) 41.6 % (42.0-75.0) L 09/03/20 05:40 Lymph % (Auto) 41.6 % (21.0-51.0) 09/03/20 05:40 [place] % (Auto) 8.5 % (0.0-13.0) 09/03/20 05:40 Eos % (Auto) 7.0 % (0.9-2.9) H 09/03/20 05:40 Baso % (Auto) 1.3 % (0.2-1.0) H 09/03/20 05:40 Neut # (Auto) 3.4 x10^3/uL (2.2-4.8) 09/03/20 05:40 Lymph # (Auto) 3.4 X10^3/uL (1.3-2.9) H 09/03/20 05:40 [place] # (Auto) 0.7 x10^3/uL (0.3-0.8) 09/03/20 05:40 Eos # (Auto) 0.6 x10^3/uL (0.0-0.2) H 09/03/20 05:40 Baso # (Auto) 0.1 X10^3/uL (0.0-0.1) 09/03/20 05:40 Absolute Nucleated RBC 0.0 /100WBC 09/03/20 05:40 Plt Morphology Comment Normal (NORMAL) 09/03/20 05:40 RBC Morphology Abnormal (NORMAL) 09/03/20 05:40 Microcytosis Slight A 09/03/20 05:40 Ovalocytes Present 09/03/20 05:40 PT 12.6 SECONDS (11.8-14.3) 09/03/20 05:40 INR Target Range - 09/03/20 05:40 INR 0.97 (0.8-1.3) 09/03/20 05:40 D-Dimer 0.99 ug/ml (0.0-0.57) H* 09/03/20 05:40 Sodium 140 mmol/L (136-145) 09/03/20 05:40 Corrected Sodium 142 mmol/L (136-145) 09/03/20 05:40 Potassium 4.3 mmol/L (3.5-5.1) 09/03/20 05:40 Chloride 105 mmol/L (98-107) 09/03/20 05:40 Carbon Dioxide 22.9 mmol/L (21-32) 09/03/20 05:40 BUN 21 mg/dL (7-18) H 09/03/20 05:40 Creatinine 2.12 mg/dL (0.70-1.30) H 09/03/20 05:40 Est GFR (MDRD) Af Amer 40 (>60) L 09/03/20 05:40 Est GFR (MDRD) Non-Af 33 (>60) L 09/03/20 05:40 Glucose 175 mg/dL (65-99) H 09/03/20 05:40 Calcium 9.1 mg/dL (8.5-10.1) 09/03/20 05:40 Corrected Calcium TNP 09/03/20 05:40 Total Bilirubin 0.20 mg/dL (0.2-1.0) 09/03/20 05:40 AST 10 Units/L (15-37) L 09/03/20 05:40 ALT 17 Units/L (12-78) 09/03/20 05:40 Alkaline Phosphatase 44 Units/L (46-116) L 09/03/20 05:40 Troponin I 0.16 ng/mL (0-1.5) 09/03/20 05:40 B-Natriuretic Peptide 18.3 pg/mL (0-79) 09/03/20 05:40 Total Protein 6.7 g/dL (6.4-8.2) 09/03/20 05:40 Albumin 3.7 g/dL (3.4-5.0) 09/03/20 05:40 Globulin 3.0 g/dL (2.5-4.5) 09/03/20 05:40 Albumin/Globulin Ratio 1.2 Ratio (1.1-2.1) 09/03/20 05:40 SARS CoV-2 RNA Rapid ANGELINA Negative (NEGATIVE) 09/03/20 07:08 Review of Systems Constitutional: No Symptoms Reported Eyes: No Symptoms Reported ENT: No Symptoms Reported Respiratory: No Symptoms Reported Cardiovascular: Chest Pain Gastrointestinal: No Symptoms Reported Genitourinary: No Symptoms Reported Musculoskeletal: No Symptoms Reported Skin: No Symptoms Reported Neurological: No Symptoms Reported Physical Exam Vital Signs: Temperature 97.2 F Pulse Rate [Left Radial] 76 Pulse Rate 82 Respiratory Rate 16 Blood Pressure [Left Arm] 122/71 Blood Pressure [Right Arm] 186/99 Blood Pressure 171/90 O2 Sat by Pulse Oximetry 100 Oriented: Normal Eyes: Normal Ear: Normal Nose: Normal Throat: Normal Respiratory: Clear Throughout Cardiovascular: Normal : Normal Auscultation: Bowel Sounds: Normal Palpation: Normal Tenderness: Normal Skin: Normal Musculoskeletal: Normal Psychiatric: Normal Mood Description: Calm and Appropriate Affect: Normal Speech Pattern: Clear and Appropriate Assessment/Plan (1) NSTEMI (non-ST elevated myocardial infarction): Status: Acute Plan: NPO, Heparin gtt Transfer to [place], [place] Review H&P Reviewed: Yes Patient was examined?: Yes
[2020-09-03] MEDS ORDERED: PROTONIX INJ 40 MG VIAL IVP SCH (09:00)
[2020-09-03] MEDS ORDERED: LOVENOX INJ 40 MG SYR SC SCH (09:00)
[2020-09-03] MEDS ORDERED: NORVASC TAB 5 MG PO SCH (09:00)
[2020-09-03] MEDS ORDERED: LISINOPRIL 20 MG PO SCH (09:00)
[2020-09-03] MEDS ORDERED: PROzac PO SCH (09:00)
[2020-09-03] MEDS ORDERED: PRAVASTATIN SODIUM 20 MG PO SCH (09:00)
[2020-09-03] MEDS ORDERED: ASPIRIN 81 MG CHEWTAB PO SCH (09:00)
[2020-09-03] MEDS ORDERED: ZESTRIL TAB 10 MG PO SCH (09:00)
[2020-09-03] MEDS ORDERED: ASPIRIN PO SCH (09:00)
[2020-09-03 09:08] LABS: CKMB % 3.3 % (<4); CREATINE KINASE MB 2.6 ng/mL (0-4.0); TROPONIN I 0.39 ng/mL (0-1.5)
[2020-09-03] MEDS ORDERED: ATIVAN TAB 1 MG PO ONE (09:54)
[2020-09-03] MEDS ORDERED: PRAVACHOL PO SCH (10:00)
[2020-09-03] MEDS ORDERED: ATIVAN TAB 1 MG ONE (10:02)
[2020-09-03] MEDS ORDERED: NORVASC TAB 5 MG ONE (10:02)
[2020-09-03] MEDS ORDERED: LOVENOX INJ 40 MG SYR SC ONE (10:02)
[2020-09-03] MEDS ORDERED: ZESTRIL TAB 10 MG ONE (10:03)
[2020-09-03] MEDS ORDERED: PROTONIX INJ 40 MG VIAL ONE (10:03)
[2020-09-03 12:21] LABS: BILIRUBIN,URINE NEGATIVE (NEGATIVE); BLOOD/HEMOGLOBIN,URINE 1+ (NEGATIVE); GLUCOSE, URINE 3+ (NEGATIVE); KETONES,URINE NEGATIVE (NEGATIVE); LEUKOCYTE ESTERASE ,URINE NEGATIVE (NEGATIVE); NITRITES,URINE NEGATIVE (NEGATIVE); PROTEIN,URINE 1+ (NEGATIVE); UROBILINOGEN,URINE NORMAL (NORMAL)
[2020-09-03 12:24] LABS: COLOR,URINE YELLOW (YELLOW)
[2020-09-03 12:25] LABS: APPEARANCE,URINE CLEAR (CLEAR)
[2020-09-03 12:29] LABS: RBC,URINE 0-2 /HPF (0-3)
[2020-09-03 12:30] LABS: BACTERIA,URINE NEGATIVE /HPF (NEGATIVE); MUCUS,URINE FEW /HPF (NEGATIVE); SQUAMOUS EPITHELIAL CELL,UR RARE /HPF (NEGATIVE)
[2020-09-03 15:11] LABS: CKMB % 7.3 % (<4)
[2020-09-03 15:18] LABS: CREATINE KINASE MB 9.1 ng/mL (0-4.0); TROPONIN I 1.56 ng/mL (0-1.5)
[2020-09-03] MEDS ORDERED: HEPARIN SODIUM IN D5W 25,000 UNITS/500 ML BAG IV PRN (15:40)
[2020-09-03] MEDS ORDERED: HEPARIN SODIUM IN D5W 25,000 UNITS/500 ML BAG IV ONE (16:08)
[2020-09-03] MEDS ORDERED: HEPARIN SODIUM INJ 5000 UNITS ONE (16:08)
[2020-09-03] MEDS ORDERED: GLUCOPHAGE PO SCH (17:00)
[2020-09-03 17:25] VITALS: BP 144/78
[2020-09-03] MEDS ORDERED: CLONAZEPAM 2 MG PO SCH (21:00)
[2020-09-03] MEDS ORDERED: KLONOPIN TAB 1 MG PO SCH (21:00)
[2020-09-04] MEDS ORDERED: ZESTRIL TAB 20 MG PO SCH (09:00)
[2020-09-04] MEDS ORDERED: ECOTRIN TAB 325 MG PO SCH (09:00)
[2020-09-04] MEDS ORDERED: NORVASC TAB 10 MG PO SCH (09:00)
== END 2020-09-03 17:20 | disposition short-term general hospital (02) ==
LOC: OBS 04:45 → ER 04:45 → OBS 08:46 → MED/SURG 15:01
PROVIDERS: ADMIT Family Medicine; ATTEND Family Medicine
DX: I10 Essential (primary) hypertension; N18.9 Chronic kidney disease, unspecified; I21.4 Non-ST elevation (NSTEMI) myocardial infarction; Z20.822 Contact with and (suspected) exposure to COVID-19; E11.65 Type 2 diabetes mellitus with hyperglycemia; F41.8 Other specified anxiety disorders; K21.9 Gastro-esophageal reflux disease without esophagitis; R07.89 Other chest pain